=== PATIENT | male | born 1955 | race Caucasian/White ===

== ENCOUNTER 2022-07-27 13:57 | Emergency (ER) | payer OTHER, MEDICARE ==
[2022-07-27] MEDS ORDERED: Metoprolol Succinate 100 MG Tab.ER PO ONE (14:25)
== END 2022-07-27 16:00 | disposition home or self-care (01) ==
LOC: LB.ED 13:57
DX: I48.3 Typical atrial flutter (principal); Z88.7 Allergy status to serum and vaccine; Z88.8 Allergy status to other drugs, medicaments and biological substances; Z79.899 Other long term (current) drug therapy
CPT/HCPCS: 99284; A9270